=== PATIENT | female | born 1970 | race Asian ===

== ENCOUNTER 2018-11-05 17:33 | Emergency (ER) | payer SELFPAY ==
[~2018-11-05] VITALS: Ht 162.6 cm; Wt 49.9 kg
[2018-11-05 17:38] VITALS: BP 128/62
--- NOTE | 2018-11-05 18:06 | Emergency Room Report ---
History of Present Illness General Chief Complaint: Abdominal Pain Source: Patient, EMS Present Illness HPI Patient is a 48-year-old female presented after increased right lower abdominal pain. Patient reports having sharp pain which did not radiate. Patient reports having prior history of pelvic surgery in the past. She states she has had prior tumor. Denies any fever. She denies any vomiting. She reports having prior symptoms for about 1 week. This is somewhat worsened. Allergies: Coded Allergies: No Known Allergies (Unverified , 11/05/18) Patient History Past Medical History: see triage record Last Menstrual Period: 10 days Now: No Reviewed Nursing Documentation: PMH: Agreed; PSxH: Agreed Nursing Documentation-PMH Past Medical History: No Stated History Review of Systems All Other Systems: negative except mentioned in HPI Physical Exam Vital Signs Date Time Temp Pulse Resp B/P (MAP) Pulse Ox O2 Delivery O2 Flow Rate FiO2 11/05/18 17:30 98.4 90 18 105/71 98 Room Air Sp02 EP Interpretation: reviewed, normal General Appearance: normal inspection, well appearing, no apparent distress, alert, GCS 15 Head: atraumatic ENT: normal ENT inspection, hearing grossly normal, normal voice Neck: normal inspection, full range of motion, supple, no bony tend Respiratory: normal inspection, lungs clear, normal breath sounds, no respiratory distress, no retraction, no wheezing Cardiovascular #1: regular rate, rhythm, no edema Gastrointestinal: normal inspection, normal bowel sounds, non tender, soft, no guarding, no hernia Genitourinary: no CVA tenderness Musculoskeletal: normal inspection, back normal, normal range of motion Neurologic: normal inspection, alert, responsive, speech normal Psychiatric: normal inspection, judgement/insight normal, mood/affect normal Skin: normal inspection, normal color, no rash Medical Decision Making ER Course Patient presented for right-sided abdominal pain. Differential diagnosis includes is not limited to stone,appendiciits, perforated viscus, abdominal aortic aneurysm, inferior myocardial infarction, viral gastroenteritis Last Vital Signs Date Time Temp Pulse Resp B/P (MAP) Pulse Ox O2 Delivery O2 Flow Rate FiO2 11/05/18 17:38 75 12 Room Air 11/05/18 17:38 98.6 128/62 100 Devyn Srinivasan MD Nov 05, 2018 18:06
[2018-11-05] MEDS: Ketorolac 30mg Inj IV ONE (18:12)
[2018-11-05 18:34] LABS: EOSINOPHILS % (AUTO) 2.1 % (0.0-3.0); HEMATOCRIT 38.3 % (37.0-47.0); HEMOGLOBIN 12.1 G/DL (12.0-16.0); LYMPHOCYTES % (AUTO) 23.5 % (20.0-45.0); MEAN CORPUSCULAR VOLUME 90 FL (80-99); MONOCYTES % (AUTO) 11.3 % (1.0-10.0); NEUTROPHILS % (AUTO) 62.1 % (45.0-75.0); PLATELET COUNT 307 K/UL (150-450); RED BLOOD COUNT 4.27 M/UL (4.20-5.40); RED CELL DISTRIBUTION WIDTH 13.3 % (11.6-14.8); WHITE BLOOD COUNT 6.3 K/UL (4.8-10.8)
[2018-11-05 18:35] LABS: INR 0.9 (0.9-1.1)
[2018-11-05 18:47] LABS: ANION GAP 7 mmol/L (5-15); BLOOD UREA NITROGEN 12 mg/dL (7-18); CALCIUM 9.5 MG/DL (8.5-10.1); CARBON DIOXIDE 30 MMOL/L (21-32); CHLORIDE 101 MMOL/L (98-107); POTASSIUM 3.8 MMOL/L (3.5-5.1); SODIUM 138 MMOL/L (136-145)
[2018-11-05 18:52] LABS: ALANINE AMINOTRANSFERASE 18 U/L (12-78); ALBUMIN 3.9 G/DL (3.4-5.0); ALKALINE PHOSPHATASE 63 U/L (46-116); ASPARTATE AMINO TRANSFERASE 15 U/L (15-37); BILIRUBIN,TOTAL 0.2 MG/DL (0.2-1.0)
[2018-11-05 18:52] LABS: APPEARANCE,URINE CLEAR; BILIRUBIN, URINE NEGATIVE (NEGATIVE); COLOR,URINE PALE YELLOW; GLUCOSE, URINE (UA) NEGATIVE (NEGATIVE); KETONES,URINE NEGATIVE (NEGATIVE); LEUKOCYTE ESTERASE ,URINE NEGATIVE (NEGATIVE); NITRITE,URINE NEGATIVE (NEGATIVE); PH,URINE 7 (4.5-8.0); PROTEIN,URINE NEGATIVE (NEGATIVE); UROBILINOGEN,URINE NORMAL MG/DL (0.0-1.0)
[2018-11-05 19:15] VITALS: BP 120/50
[2018-11-05] MEDS: Morphine Sulfate 4mg/ml Inj (IV/IM USE ONLY) IVP ONE (20:21)
[2018-11-05 21:54] VITALS: BP 126/56
[2018-11-05] MEDS ORDERED: NORCO 5-325 TA1 EACH ORAL (22:19)
[2018-11-05] MEDS ORDERED: IBUPROFEN600 MG ORAL (22:19)
[2018-11-05 22:24] VITALS: BP 126/56
--- NOTE | 2018-11-06 17:29 | Diagnostic Imaging Report ---
Indication: Abdominal pain, pelvic pain, right lower quadrant pain Technique: Transabdominal and transvaginal images Comparison: none Findings: Uterus measures 10 cm length by 5.9 cm AP. The endometrium measures 9 mm thick. Multiple myometrial fibroids are demonstrated, measuring up to 6 cm diameter. There is fluid within the endocervical canal. The left ovary measures 3.5 cm length. The right ovary measures 2.5 cm length. No adnexal mass demonstrated. Small amount of free fluid is seen in the cul-de-sac Impression: Multiple uterine fibroids Nonspecific fluid within the endocervical canal, possibly blood Trace free pelvic fluid, most likely physiologic if patient is not yet postmenopausal
== END 2018-11-05 22:25 | disposition home or self-care (01) ==
LOC: EDBD 17:33 → EMR 18:01
DX: R10.31 Right lower quadrant pain (principal); F17.200 Nicotine dependence, unspecified, uncomplicated
CPT/HCPCS: 36415; 76830; 76856; 80053; 81003; 81025; 83690; 84484; 85025; 85610; 85730; 96374; 96375; 99284; J1885; J2270